=== PATIENT | male | born 1990 | race Caucasian/White ===

== ENCOUNTER 2018-10-10 15:34 | Emergency (ER) | payer SELFPAY ==
[~2018-10-10] VITALS: Ht 167.6 cm; Wt 80.8 kg
[2018-10-10 15:40] VITALS: Ht 167.6 cm; Wt 80.8 kg
[2018-10-10] MEDS ORDERED: SODIUM CHLORIDE 0.9% 1L BAG IV* STA (16:53)
[2018-10-10] MEDS ORDERED: ALBUTEROL 0.083% (NEB) 2.5 MG/3 ML AMP HHN STA ×2 (16:53→20:33)
--- NOTE | 2018-10-10 16:55 | ERD ---
ER Documentation Chief Complaint Chief Complaint Complains of a cough, colds and flu symptoms HPI 28-year-old male, presents to the emergency department, complaining of 4 days with worsening of upper respiratory symptoms including fever, productive cough and chest congestion. The patient was seen by his primary doctor and started on Tamiflu and azithromycin without improvement of the symptoms. ROS All systems reviewed and are negative except as per history of present illness. Medications Home Meds Active Scripts Guaifenesin-Codeine Phosphate* (Guaifenesin* AC Cough Syrup) 473 Ml Liquid, 5 ML PO Q4H PRN for COUGH, #60 ML Prov:WANG MELCHOR MD 10/10/18 Inhaler, Assist Devices (Compact Space Chamber) 1 Each Spacer, EACH MC Q4 PRN for COUGH, #1 Prov:WANG MELCHOR MD 10/10/18 Albuterol Sulfate* (Proair HFA*) 8.5 Gm Hfa.aer.ad, 2 PUFF INH Q4H PRN for WHEEZING AND SOB, #1 INHALER Prov:WANG MELCHOR MD 10/10/18 Prednisone* (Prednisone*) 20 Mg Tab, 60 MG PO DAILY for 4 Days, TAB Prov:WANG MELCHOR MD 10/10/18 Amoxicillin* (Amoxicillin*) 500 Mg Cap, 500 MG PO TID for 10 Days, CAP Prov:WANG MELCHOR MD 10/10/18 Allergies Allergies: Coded Allergies: No Known Allergy (Unverified , 10/10/18) FmHx Family History: No diabetes, No coronary disease Physical Exam Vitals Vital Signs Date Temp Pulse Resp B/P (MAP) Pulse Ox O2 O2 Flow FiO2 Time Delivery Rate 10/10/18 98.7 105 16 124/69 99 Room Air 21:59 (87) 10/10/18 38.5 20:58 10/10/18 92 24 95 21 20:53 10/10/18 101.3 97 20 135/67 96 Room Air 20:49 (89) 10/10/18 103 20 96 21 17:27 10/10/18 103.3 126 20 157/84 100 15:40 (108) Physical Exam Patient alert, oriented, vital signs showed fever and tachycardia HEENT: Normocephalic, atraumatic. EYES: PERRLA, EOMI, Sclera and conjunctiva appear normal. EARS: Canals clear, tympanic membranes WNL. THROAT: Normal oropharynx. NECK: Supple, No lymphadenopathy. Full ROM without pain or tenderness. HEART: RRR, no rubs, murmurs, clicks or gallops. LUNGS: Decreased respiratory sounds with rhonchi to auscultation. ABDOMEN: Soft, non-tender without masses or hepatosplenomegaly. EXTREMITIES: No edema bilaterally. BACK: Full ROM, no deformity, normal back exam NEURO: Cranial nerves grossly intact, no motor or sensory deficit Result Diagram: 10/10/18 1205 10/10/18 1205 Results 24 hrs Laboratory Tests Test 10/10/18 12:05 10/10/18 17:11 White Blood Count 4.5 10^3/ul Red Blood Count 5.46 10^6/ul Hemoglobin 13.2 g/dl Hematocrit 41.4 % Mean Corpuscular Volume 75.8 fl Mean Corpuscular Hemoglobin 24.2 pg Mean Corpuscular Hemoglobin Concent 31.9 g/dl Red Cell Distribution Width 15.8 % Platelet Count 223 10^3/UL Mean Platelet Volume 9.3 fl Immature Granulocytes % 0.000 % Neutrophils % 63.2 % Lymphocytes % 27.5 % Monocytes % 9.1 % Eosinophils % 0.0 % Basophils % 0.2 % Nucleated Red Blood Cells % 0.0 /100WBC Immature Granulocytes # 0.000 10^3/ul Neutrophils # 2.9 10^3/ul Lymphocytes # 1.2 10^3/ul Monocytes # 0.4 10^3/ul Eosinophils # 0.0 10^3/ul Basophils # 0.0 10^3/ul Nucleated Red Blood Cells # 0.0 10^3/ul Urine Color YELLOW Urine Clarity CLEAR Urine pH 6.0 Urine Specific Bagley 1.018 Urine Ketones NEGATIVE mg/dL Urine Nitrite NEGATIVE mg/dL Urine Bilirubin NEGATIVE mg/dL Urine Urobilinogen NEGATIVE mg/dL Urine Leukocyte Esterase NEGATIVE Ana/ul Urine Hemoglobin NEGATIVE mg/dL Urine Glucose NEGATIVE mg/dL Urine Total Protein NEGATIVE mg/dl Sodium Level 139 mmol/L Potassium Level 3.4 mmol/L Chloride Level 102 mmol/L Carbon Dioxide Level 26 mmol/L Anion Gap 11 Blood Urea Nitrogen 12 mg/dl Creatinine 0.58 mg/dl Est Glomerular Filtrat Rate mL/min > 60 mL/min Glucose Level 104 mg/dl Calcium Level 8.8 mg/dl Total Bilirubin 0.1 mg/dl Direct Bilirubin 0.00 mg/dl Indirect Bilirubin 0.1 mg/dl Aspartate Amino Transf (AST/SGOT) 35 IU/L Alanine Aminotransferase (ALT/SGPT) 42 IU/L Alkaline Phosphatase 98 IU/L Total Protein 8.0 g/dl Albumin 4.2 g/dl Globulin 3.80 g/dl Albumin/Globulin Ratio 1.10 Lipase 59 U/L POC Venous Lactate 1.5 mmol/L Current Medications Medications Dose Sig/Carmine Start Time Status Last (Trade) Ordered Route PRN Stop Time Admin Dose Reason Admin Sodium 2,420 ml BOLUS OVER 2 10/10/18 DC 10/10/18 Chloride HOURS STAT 16:53 10/10/18 17:19 (NS) IV* 16:57 Albuterol 5 mg ONCE STAT 10/10/18 DC 10/10/18 (Proventil HHN 16:53 10/10/18 17:27 0.083% (Neb)) 16:57 Ipratropium 0.5 mg ONCE ONCE 10/10/18 DC 10/10/18 [place] HHN 17:00 10/10/18 17:27 (Atrovent 17:01 0.02% (Neb)) Ceftriaxone 50 ml @ ONCE ONCE 10/10/18 DC 10/10/18 Sodium 100 mls/hr IVPB 18:00 10/10/18 18:10 18:29 Albuterol 5 mg ONCE RESP 10/10/18 DC 10/10/18 (Proventil THERAPY 20:33 10/10/18 20:53 0.083% (Neb)) STAT HHN 20:34 Ipratropium 0.5 mg ONCE RESP 10/10/18 DC 10/10/18 [place] THERAPY 20:30 10/10/18 20:52 (Atrovent ONCE HHN 20:34 0.02% (Neb)) 500 mg ONCE ONCE 10/10/18 DC 10/10/18 Azithromycin PO 20:30 10/10/18 20:42 (Zithromax) 20:31 650 mg ONCE ONCE 10/10/18 DC 10/10/18 Acetaminophen PO 21:00 10/10/18 20:58 (Tylenol 21:01 Tab) Ketorolac 30 mg ONCE STAT 10/10/18 DC 10/10/18 Tromethamine IV 20:41 10/10/18 20:58 (Toradol) 20:44 DIAGNOSTIC IMAGING REPORT Patient: KENA CALDERÓN : 1990 Age: 28 Sex: M MR #: [id number] DOS: 10/10/18 1653 Ordering MD: WANG MELCHOR MD Location: [facility] Room/Bed: PROCEDURE: XR Chest. CLINICAL INDICATION: Sepsis TECHNIQUE: Frontal chest x-ray was obtained. COMPARISON: None. FINDINGS: The heart is not enlarged. Mediastinum is not widened. No hilar masses seen. There are increased reticular nodular markings at the left lung base.. There is no effusion or pneumothorax. The osseous structures appear normal. IMPRESSION: Increase reticular nodular markings left lung base. Question interstitial pneumonia. .Henry Cleveland MD, MD Date Time Electronically viewed and signed by .Henry Cleveland MD, MD on 10/10/2018 17:23 .A/ CC: WANG MELCHOR MD [id number] Procedures/MDM Vital signs stable, no respiratory distress. Differential diagnosis include but not limited to: Respiratory infection bacterial/viral/fungal. Influenza, asthma, COPD, pneumonia, pneumonitis, allergies, GERD. Less likely foreign body aspiration, cardiac related. Physical examination and clinical presentation consistent most likely with viral infection with early superimposed bacterial infection. During the ED course the patient remained stable, no new complaints. Treatment options and clinical impression discussed with the patient who agrees with management. The patient is stable to be treated outpatient and will be discharged home. Some side effects of prescribed medications (headache, rash, nausea, vomiting, diarrhea, interactions with other medications) were reviewed. The patient needs to follow up with the primary care provider in the next 48h. If symptoms persist, worsen or new symptoms develop, then patient should return to the ED immediately. Disclaimer: Inadvertent spelling and grammatical errors are likely due to EHR/dictation software use and do not reflect on the overall quality of patient care. Also, please note that the electronic time recorded on this note does not necessarily reflect the actual time of the patient encounter. Departure Diagnosis: Primary Impression: Interstitial pneumonia Condition: Stable Additional Instructions: Muchas willie por [facility] para menendez servicio. Esperamos que en menendez visita a la lucho de emergencia menendez problema medico haya sido solucionado y que se sienta mucho mejor. Para estar seguros que menendez mejoria sigue en proceso, le pedimos el favor de hacer annie ryley de seguimiento medico con menendez doctor primario en los proximos 2-4 garrett. Lleve con usted estos documentos y las medicinas recetadas. Si talib sintomas empeoran, NO SE ESPERE, por favor regrese a lucho de emergencia INMEDIATAMENTE. En haley que usted no tenga un mdico de atencin primaria: Llame al mdico o clnica comunitaria de referencia que aparece abajo latisha las horas de consultorio para hacer annie ryley para que le vean. CLINICAS: [facility] [phone] [address] [facility] [facility] [phone] [address] [facility] [address] [facility] [phone] [facility] [phone] [address] [facility]. [facility] [phone] [address] [facility]. [phone] WANG PARKER MD Oct 10, 2018 16:55
[2018-10-10] MEDS ORDERED: IPRATROPIUM (NEB) 0.5 MG/2.5 ML AMP HHN ONE ×2 (17:00→20:30)
[2018-10-10] MEDS ORDERED: CEFTRIAXONE 1 GM/50 ML (PMX) 50 ML IVPB ONE (18:00)
[2018-10-10] MEDS ORDERED: AZITHROMYCIN 250 MG TAB PO ONE (20:30)
[2018-10-10] MEDS ORDERED: KETOROLAC 30 MG INJ IV STA (20:41)
[2018-10-10] MEDS ORDERED: ACETAMINOPHEN 325 MG TAB PO ONE (21:00)
[2018-10-10] MEDS ORDERED: PRED20TA PO (21:26)
[2018-10-10] MEDS ORDERED: INHA-3 MC (21:26)
[2018-10-10] MEDS ORDERED: AMOX500C2 PO (21:26)
[2018-10-10] MEDS ORDERED: ALBU8.5H8 INH (21:26)
[2018-10-10] MEDS ORDERED: GUAI473L22 PO (21:27)
[2018-10-10 21:59] VITALS: BP 124/69; PULSE 105; RESP 16
== END 2018-10-10 22:00 | disposition home or self-care (01) ==
LOC: FTE 15:34
DX: J84.9 Interstitial pulmonary disease, unspecified (principal)
CPT/HCPCS: 71045; 80053; 81003; 83605; 83690; 85025; 87400; 94640; 94664; 96374; 96375; 99284; J0696; J1885; J7030

== ENCOUNTER 2018-10-13 15:56 | Emergency (ER) | payer SELFPAY ==
[~2018-10-13] VITALS: Ht 167.6 cm; Wt 80.4 kg
[~2018-10-13 15:56] MED LIST: ALBU8.5H8 INH; AMOX500C2 PO; GUAI473L22 PO; INHA-3 MC; PRED20TA PO
[2018-10-13 16:03] VITALS: BP 123/69; PULSE 96; RESP 18; Ht 167.6 cm; Wt 80.4 kg
[2018-10-13] MEDS ORDERED: ALBUTEROL 0.083% (NEB) 2.5 MG/3 ML AMP HHN STA (16:36)
[2018-10-13] MEDS ORDERED: IPRATROPIUM (NEB) 0.5 MG/2.5 ML AMP HHN ONE (17:00)
[2018-10-13] MEDS ORDERED: PROM6.2515 PO (17:28)
[2018-10-13] MEDS ORDERED: ALBU8.5H8 INH (17:28)
[2018-10-13] MEDS ORDERED: LEVO750T25 PO (17:28)
--- NOTE | 2018-10-13 17:46 | ERD ---
ER Documentation Chief Complaint Chief Complaint RECENT DX PNA ON THURSDAY ON ABX; COUGH, CHILLS, FEVER NO IMPROVEMENT HPI 28-year-old male presenting with cough times 3 days. Patient has been taking amoxicillin for the last 2 days with no improvement. Patient still feels chills and productive coughing. Patient was diagnosed with pneumonia. He feels short of breath. Denies hemoptysis. Denies pleuritic chest pain. Last took ibuprofen 2 hours prior to my evaluation. Denies medical pulse. NKDA. Surgical history denies. Social history denies ROS All systems reviewed and are negative except as per history of present illness. Medications Home Meds Active Scripts Promethazine Hcl* (Promethazine Hcl* Syrup) 6.25 Mg/5 Ml Syrup, 6.25 MG PO Q6H PRN for COUGH, #100 ML Prov:ADRIAN LAMBERT PA-C 10/13/18 Albuterol Sulfate* (Proair HFA*) 8.5 Gm Hfa.aer.ad, 2 PUFF INH Q4, #1 INHALER Prov:ADRIAN LAMBERT PA-C 10/13/18 Levofloxacin* (Levaquin*) 750 Mg Tablet, 750 MG PO DAILY for 5 Days, TAB Prov:ADRIAN LAMBERT PA-C 10/13/18 Guaifenesin-Codeine Phosphate* (Guaifenesin* AC Cough Syrup) 473 Ml Liquid, 5 ML PO Q4H PRN for COUGH, #60 ML Prov:WANG MELCHOR MD 10/10/18 Inhaler, Assist Devices (Compact Space Chamber) 1 Each Spacer, EACH MC Q4 PRN for COUGH, #1 Prov:WANG MELCHOR MD 10/10/18 Albuterol Sulfate* (Proair HFA*) 8.5 Gm Hfa.aer.ad, 2 PUFF INH Q4H PRN for WHEEZING AND SOB, #1 INHALER Prov:WANG MELCHOR MD 10/10/18 Prednisone* (Prednisone*) 20 Mg Tab, 60 MG PO DAILY for 4 Days, TAB Prov:WANG MELCHOR MD 10/10/18 Amoxicillin* (Amoxicillin*) 500 Mg Cap, 500 MG PO TID for 10 Days, CAP Prov:WANG MELCHOR MD 10/10/18 Allergies Allergies: Coded Allergies: No Known Allergy (Unverified , 10/10/18) PMhx/Soc History of Surgery: Yes (FACE SURGERY) Anesthesia Reaction: No Hx Neurological Disorder: No Hx Respiratory Disorders: No Hx Cardiac Disorders: No Hx Psychiatric Problems: No Hx Miscellaneous Medical Probl: No Hx Alcohol Use: No Hx Substance Use: No Hx Tobacco Use: No Smoking Status: Never smoker FmHx Family History: No diabetes, No coronary disease, No other Physical Exam Vitals Vital Signs Date Temp Pulse Resp B/P (MAP) Pulse Ox O2 O2 Flow FiO2 Time Delivery Rate 10/13/18 81 20 99 21 17:21 10/13/18 98.5 96 18 123/69 97 16:03 (87) Physical Exam GENERAL: The patient is well-appearing, well-nourished, in no acute distress HEENT: Atraumatic. Conjunctivae are pink. Pupils equal, round, and reactive to light. There is no scleral icterus. Tympanic membranes clear bilaterally. Oropharynx clear. No nystagmus or photophobia. NECK: C-spine is soft and supple. There is no meningismus. There is no cervical lymphadenopathy CHEST: Coarse breath sounds heard throughout with no focal rhonchi or ret ractions. HEART: Regular rate and rhythm. No murmurs, clicks, rubs or gallops. No S3 or S4. Results 24 hrs Current Medications Medications Dose Sig/Carmine Start Time Status Last (Trade) Ordered Route PRN Stop Time Admin Dose Reason Admin Albuterol 5 mg ONCE STAT 10/13/18 DC 10/13/18 (Proventil HHN 16:36 10/13/18 17:18 0.083% (Neb)) 16:38 Ipratropium 0.5 mg ONCE ONCE 10/13/18 DC 10/13/18 [place] HHN 17:00 10/13/18 17:18 (Atrovent 17:01 0.02% (Neb)) Procedures/MDM DIAGNOSTIC IMAGING REPORT Patient: KENA CALDERÓN : 1990 Age: 28 Sex: M MR #: [id number] DOS: 10/13/18 1636 Ordering MD: JIHAN LAMBERT PA-C Location: [facility] Room/Bed: PROCEDURE: XR Chest. CLINICAL INDICATION: Cough TECHNIQUE: Frontal chest x-ray was obtained. COMPARISON: Chest x-ray October 10, 2018 FINDINGS: The heart is not enlarged. Mediastinum is not widened. No hilar masses seen. There has been interval partial clearing of left lower lobe interstitial infiltrate.. There is no effusion or pneumothorax. The osseous structures appear normal. IMPRESSION: Partial clearing left lower lobe interstitial infiltrate. ER course: Albuterol and Atrovent breathing treatment given in ED. MDM: 28-year-old male presenting with cough. I have low suspicion for respiratory distress or hypoxia. I have low suspicion for sepsis. Patient's vitals are stable. Patient's antibiotics will be changed however x-ray shows partial clearing of the infiltrate. Patient is discharged with additional supportive medications for cough. I have low suspicion for PE. I will suspicion for other cardiac emergency or pulmonary emergency. All questions answered discharge Departure Diagnosis: Primary Impression: Pneumonia Condition: Stable Patient Instructions: Pneumonia (Adult) Referrals: [facility] YOU HAVE RECEIVED A MEDICAL SCREENING EXAM AND THE RESULTS INDICATE THAT YOU DO NOT HAVE A CONDITION THAT REQUIRES URGENT TREATMENT IN THE EMERGENCY DEPARTMENT. FURTHER EVALUATION AND TREATMENT OF YOUR CONDITION CAN WAIT UNTIL YOU ARE SEEN IN YOUR DOCTORS OFFICE WITHIN THE NEXT 1-2 DAYS. IT IS YOUR RESPONSIBILITY TO MAKE AN APPOINTMENT FOR FOLOW-UP CARE. IF YOU HAVE A PRIMARY DOCTOR --you should call your primary doctor and schedule an appointment IF YOU DO NOT HAVE A PRIMARY DOCTOR YOU CAN CALL OUR PHYSICIAN REFERRAL HOTLINE AT IF YOU CAN NOT AFFORD TO SEE A PHYSICIAN YOU CAN CHOSE FROM THE FOLLOWING [facility] [address] [facility] [address] [facility] [facility] [address] [facility]. [facility] [address] [facility]. [facility] [address] [facility]. [facility]. [address] Additional Instructions: FOLLOW UP WITH YOUR PRIMARY CARE PHYSICIAN TOMORROW.Return to this facility if you are not improving as expected. ADRIAN LAMBERT PA-C Oct 13, 2018 17:46
== END 2018-10-13 17:56 | disposition home or self-care (01) ==
LOC: FTE 15:56
DX: J18.9 Pneumonia, unspecified organism (principal)
CPT/HCPCS: 71045; 94664